=== PATIENT | female | born 1960 | race Caucasian/White ===

== ENCOUNTER 2018-01-26 06:18 | Day surgery (SDC) | payer OTHER ==
[~2018-01-26 06:18] MED LIST: Buffered Lidocaine 0.9% SYRIN* 5 ML/SYR SYRINGE INTRADERM ONE
[2018-01-26] MEDS ORDERED: Ondansetron INJ* 2 MG/ML VIAL ONE ×2 (07:06→12:05)
[2018-01-26] MEDS ORDERED: Scopolamine 1.5 mg* PATCH ONE (07:06)
[2018-01-26] MEDS ORDERED: Dexamethasone IV* 4 MG/ML 1 ML (4 MG) ONE (07:06)
[2018-01-26] MEDS ORDERED: ceFAZolin 2 GM PREMIX (*) 2 GM/50 ML BAG IVPB ONE (07:06)
[2018-01-26] MEDS ORDERED: Lidocain 1% EPI 1:100,000 * 30 ML MDV ONE ×2 (07:08→07:14)
[2018-01-26] MEDS ORDERED: Bupivacaine 0.25% SDV PF* 10 ML VIAL INJ ONE (07:09)
[2018-01-26] MEDS ORDERED: Atracurium* 10 MG/ML 10 ML VIAL ONE (07:10)
[2018-01-26] MEDS ORDERED: Midazolam* 1 MG/ML 5 ML VIAL (5 MG) ONE (07:10)
[2018-01-26] MEDS ORDERED: Propofol* 10 MG/ML 20 ML BTL IV PUSH ONE (07:10)
[2018-01-26] MEDS ORDERED: fentaNYL* 50 MCG/ML 2 ML VIAL (100 MCG VIAL) ONE ×4 (07:10→13:01)
[2018-01-26] MEDS ORDERED: Naloxone* 0.4 MG/ML 1 ML VIAL IV PRN (09:58)
[2018-01-26] MEDS ORDERED: HYDROmorphone INJ* 0.5 MG/0.5 ML SYRINGE IV PRN (09:58)
[2018-01-26] MEDS ORDERED: Ondansetron INJ* 2 MG/ML VIAL IV PRN (09:58)
[2018-01-26] MEDS ORDERED: fentaNYL* 50 MCG/ML 2 ML VIAL (100 MCG VIAL) IV PRN (09:58)
[2018-01-26] MEDS ORDERED: DiMENhydriNATE IV* 50 MG/ML VIAL IV PUSH PRN (09:58)
[2018-01-26] MEDS ORDERED: oxyCODONE/Acetamin 5/325 MG* TAB PO PRN (09:58)
[2018-01-26] MEDS ORDERED: ceFAZolin 1 GM in Dextrose (*) 2 GM/100 ML BAG IVPB ONE (11:50)
[2018-01-26] MEDS ORDERED: oxyCODONE/Acetamin 5/325 MG* TAB ONE (13:22)
[2018-01-26 15:51] VITALS: BP 115/75
== END 2018-01-26 16:05 | disposition home or self-care (01) ==
LOC: OR 06:18
PROVIDERS: ATTEND Plastic Surgery
DX: N62 Hypertrophy of breast (principal); M54.2 Cervicalgia; M25.512 Pain in left shoulder; M25.511 Pain in right shoulder; M54.9 Dorsalgia, unspecified; I10 Essential (primary) hypertension; G47.33 Obstructive sleep apnea (adult) (pediatric); M85.80 Other specified disorders of bone density and structure, unspecified site
CPT/HCPCS: 88305; A9270-GY; A9272; J0690; J1100; J2250; J2405; J2704; J3010; J3490